=== PATIENT | female | born 1980 | race Caucasian/White ===

== ENCOUNTER 2017-11-15 18:44 | Emergency (ER) | payer BC ==
[~2017-11-15] VITALS: Ht 167.6 cm; Wt 18.1 kg
[~2017-11-15 18:44] MED LIST: DULO-31 PO; METF500T PO; THYR65TA6 PO
[2017-11-15] MEDS ORDERED: LIDOcaine 1% 30ml preserv. free vial IJ ONE (19:15)
[2017-11-15] MEDS ORDERED: HYDROcodone/acetaminophen 10/325mg tab PO ONE (19:20)
[2017-11-15 20:17] VITALS: BP 140/93
== END 2017-11-15 20:18 | disposition home or self-care (01) ==
LOC: ER 18:44
DX: S61.211A Laceration without foreign body of left index finger without damage to nail, initial encounter (principal); W23.0XXA Caught, crushed, jammed, or pinched between moving objects, initial encounter; Y93.89 Activity, other specified; Y92.89 Other specified places as the place of occurrence of the external cause; Y99.8 Other external cause status
CPT/HCPCS: 12001; 73140; 99284; A6449; J3490; 10060

== ENCOUNTER 2019-04-26 06:51 | Emergency (ER) | payer BC ==
[~2019-04-26] VITALS: Ht 172.7 cm; Wt 123.0 kg
[2019-04-26] MEDS ORDERED: ketorolac trometh inj. 60 MG/2 ML VIAL IM ONE (07:20)
[2019-04-26] MEDS ORDERED: HYDROcodone/acetaminophen 10/325mg tab PO ONE (07:20)
[2019-04-26] MEDS ORDERED: HYDR-4353 PO (08:21)
[2019-04-26] MEDS ORDERED: ORPH100T2 PO (08:21)
[2019-04-26 08:28] VITALS: BP 141/45
== END 2019-04-26 08:32 | disposition home or self-care (01) ==
LOC: ER 06:51
DX: M25.512 Pain in left shoulder (principal); M25.511 Pain in right shoulder; M79.18 Myalgia, other site; G89.29 Other chronic pain; M54.2 Cervicalgia; M54.9 Dorsalgia, unspecified; F17.200 Nicotine dependence, unspecified, uncomplicated; Z79.84 Long term (current) use of oral hypoglycemic drugs; Z79.899 Other long term (current) drug therapy
CPT/HCPCS: 93005; 96372; 99283; J1885; 99284

== ENCOUNTER 2020-07-13 20:20 | Emergency (ER) | payer BC ==
[~2020-07-13] VITALS: Ht 172.7 cm; Wt 113.6 kg
[~2020-07-13 20:20] MED LIST changes: +ORPH100T2 PO
[2020-07-13 20:55] LABS: BASOPHILS # (AUTO) 0.1 X10'3 (0-0.2); BASOPHILS % (AUTO) 0.8 % (0-1); EOSINOPHILS # (AUTO) 0.2 X10'3 (0-0.9); EOSINOPHILS % (AUTO) 1.8 % (0-6); HEMATOCRIT 42.3 % (35.0-45.0); HEMOGLOBIN 14.4 g/dl (12.0-16.0); LYMPHOCYTES # (AUTO) 2.5 X10'3 (1.1-4.8); LYMPHOCYTES % (AUTO) 30.1 % (21-51); MEAN CORPUSCULAR HEMOGLOBIN 29.5 PG (27.0-31.0); MEAN CORPUSCULAR HGB CONC 34.1 g/dL (33.0-36.5); MEAN CORPUSCULAR VOLUME 86.5 FL (78-98); MONOCYTES # (AUTO) 0.5 X10'3 (0-0.9); MONOCYTES % (AUTO) 6.5 % (2-12); NEUTROPHILS # (AUTO) 5.2 X10'3 (1.8-7.7); NEUTROPHILS % (AUTO) 60.8 % (42-75); PLATELET COUNT 293 X10'3 (140-440); RED BLOOD COUNT 4.89 X10'6 (4.20-5.60); RED CELL DISTRIBUTION WIDTH 14.1 % (11.5-14.5); WHITE BLOOD COUNT 8.5 X10'3 (4.5-11.0)
[2020-07-13 20:58] LABS: URINE HCG NEGATIVE (NEG)
[2020-07-13 21:03] LABS: CLARITY,URINE CLEAR (Clear); COLOR,URINE STRAW (Yellow); GLUCOSE, URINE NEGATIVE (Neg); KETONES,URINE TRACE mg/dl (Neg); OCCULT BLOOD,URINE LARGE (Neg)
[2020-07-13 21:04] LABS: UA COLLECTION TYPE CLN CATCH MIDSTREAM
[2020-07-13 21:11] LABS: ALANINE AMINOTRANSFERASE 24 U/L (12-78); ALBUMIN 3.6 G/DL (3.4-5.0); ALBUMIN/GLOBULIN RATIO 1.1 (1.1-1.5); ALKALINE PHOSPHATASE 83 IU/L (46-116); ANION GAP 8 (8-16); ASPARTATE AMINO TRANSFERASE 14 U/L (10-37); BILIRUBIN,TOTAL 0.2 MG/DL (0.1-1.0); BLOOD UREA NITROGEN 12 MG/DL (7-18); CALCIUM 9.2 MG/DL (8.5-10.1); CHLORIDE 105 MMOL/L (99-107); GLUCOSE 90 MG/DL (70-104); LIPASE 151 U/L (73-393); POTASSIUM 4.5 MMOL/L (3.5-5.1); SODIUM 139 MMOL/L (135-145); TOTAL CARBON DIOXIDE 26.2 MMOL/L (24-32); eGFR 61 ML/MIN
[2020-07-13 21:16] LABS: LEUKOCYTE ESTERASE ,URINE NEGATIVE (Neg); NITRITES, URINE NEGATIVE (Neg); PROTEIN,URINE NEGATIVE (Neg)
--- NOTE | 2020-07-13 21:16 | NUR ---
PER LAB, THE UA WAS (+) FOR BLOOD, LEUKOCYTES, AND NITRITES. THIS INFORMATION IS INACCURATE. PER SARA IN LAB, PT URINE IS (+) FOR BLOOD, AND (-) FOR LEUKOCYTES AND NITRITES. ED GAGANDEEP MARS AWARE
[2020-07-13 21:17] LABS: BACTERIA,URINE NONE SEEN /HPF (Neg); RBC,URINE 0-2 /HPF (0-2); SQUAMOUS EPITHELIAL CELL,UR FEW /LPF (FEW); WBC,URINE NONE SEEN /HPF (0-4)
[2020-07-13] MEDS ORDERED: normal saline 1000ml 1,000 ML IV ONE (22:10)
[2020-07-13] MEDS ORDERED: ketorolac tromethamine 15mg/ml inj. IV ONE (22:10)
[2020-07-13] MEDS ORDERED: ondansetron/PF 4mg/2ml inj IV ONE (23:05)
[2020-07-13] MEDS ORDERED: morphine 4 MG/ML inj SYRINge IV ONE (23:05)
[2020-07-13] MEDS ORDERED: ONDA4TAB6 PO (23:51)
[2020-07-13] MEDS ORDERED: FLO0.4C PO (23:51)
[2020-07-13] MEDS ORDERED: HYDR-4383 PO (23:51)
[2020-07-13 23:56] VITALS: BP 126/62
== END 2020-07-14 00:49 | disposition home or self-care (01) ==
LOC: ER 20:21
DX: N20.9 Urinary calculus, unspecified (principal); N83.202 Unspecified ovarian cyst, left side; G89.29 Other chronic pain; Z79.899 Other long term (current) drug therapy
CPT/HCPCS: 36415; 74176; 80053; 81001; 81025; 83690; 85025; 96361; 96374; 96375; 99284; J1885; J2270; J2405; J7030